=== PATIENT | male | born 1985 | race Two or more races ===

== ENCOUNTER 2018-10-31 11:54 | Emergency (ER) | payer BC ==
[~2018-10-31] VITALS: Ht 167.6 cm; Wt 88.0 kg
[2018-10-31 13:56] VITALS: BP 144/90
== END 2018-10-31 13:59 | disposition home or self-care (01) ==
LOC: ER 11:54
DX: R03.0 Elevated blood-pressure reading, without diagnosis of hypertension (principal)
CPT/HCPCS: 99283; Z7610